=== PATIENT | female | born 1970 | race Caucasian/White ===

== ENCOUNTER 2019-02-22 08:28 | Emergency (ER) | payer MEDICARE, MEDICAID ==
[~2019-02-22] VITALS: Ht 160 cm; Wt 85.0 kg
[~2019-02-22 08:28] MED LIST: AMBIEN 10MG10 MG PO; ASPIRIN 81M81 MG/TA2 PO; CYMBALTA 60MG60 MG PO; JOLESSA 30 MCG-1 TAB PO; LASIX 40MG TABL40 MG PO; LEVEMIR100 U/ML SQ; LEVOXYL0.125 MG PO; NEURONTIN600 MG/TAB PO; NOVOLOG 100U100 U/M1 SQ; TOPROL XL 25MG25 MG PO; VASOTEC 2.2.5 MG/TAB PO; WELLBUTRIN XL150 MG PO
[2019-02-22 08:33] VITALS: TEMP 98.4
[2019-02-22 09:20] LABS: COLLECTION METHOD CLEAN CATCH
[2019-02-22 09:20] LABS: BASO % 0.3 % (0.0-2.0); EOS # 0.1 (0.0-0.7); EOS % 1.4 % (0-4.0); GRAN % 70.6 % (42.2-75.2); HEMOGLOBIN 10.9 g/dl (12.5-16.0); LYMPH # 1.4 (1.2-3.4); LYMPH % 20.4 % (20.0-51.0); MEAN CELL VOLUME 90 fl (80.0-100.0); MEAN CORPUSCULAR HEMOGLOBIN 29 pg (27.0-31.0); MEAN CORPUSCULAR HGB CONC 32 g/dl (33.0-37.0); MEAN PLATELET VOLUME 10.9 fl (7.4-10.4); MONO # 0.5 (0.1-0.6); PLATELET COUNT 444 K/mm3 (130-400); RED BLOOD COUNT 3.81 M/mm3 (4.10-5.30); REDCELL DISTRIBUTION WIDTH-CV 13.1 % (11.5-14.5)
[2019-02-22 09:22] LABS: HEMATOCRIT 34.3 % (37.0-47.0)
[2019-02-22 09:27] LABS: PROTHROMBIN TIME 11.7 SECONDS (9.7-12.8)
[2019-02-22 09:30] LABS: PH 6 (5-8); SQUAMOUS EPITHELIAL None Seen /hpf; URINE APPEARANCE Clear; URINE BACTERIA None Seen /hpf; URINE BILIRUBIN Negative (NEGATIVE); URINE BLOOD 1+ (NEGATIVE); URINE COLOR Straw; URINE GLUCOSE 3+ (NEGATIVE); URINE KETONE Negative (NEGATIVE); URINE LEUKOCYTE ESTERASE Negative (NEGATIVE); URINE NITRATE Negative (NEGATIVE); URINE PROTEIN(semi-quant) Negative (NEGATIVE); URINE RBC 0-2 /hpf; URINE UROBILINOGEN Negative (NEGATIVE)
[2019-02-22 09:33] LABS: ALANINE AMINOTRANSFERASE < 6 U/L (9-52); ALBUMIN 3.9 gm/dL (3.5-5.0); ALKALINE PHOSPHATASE 167 U/L (50-136); ANION GAP 11 mmol/L (7-16); AST,SGOT 14 U/L (15-37); BILIRUBIN,TOTAL 0.5 mg/dL (0.0-1.0); BLOOD UREA NITROGEN 32 mg/dL (7-17); CALCIUM 9.3 mg/dL (8.4-10.2); CARBON DIOXIDE 21 mmol/L (22-30); CHLORIDE 93 mmol/L (98-107); CREATININE, serum 1.69 (0.52-1.25); POTASSIUM 4.9 mmol/L (3.4-5.0); SODIUM 126 mmol/L (137-145); TOTAL PROTEIN 7.5 gm/dL (6.4-8.2)
[2019-02-22 09:34] LABS: ACETONE,SERUM NEGATIVE
[2019-02-22 09:46] LABS: GLUCOSE 691 mg/dL (74-106)
[2019-02-22] MEDS ORDERED: LEVEMIR FLEX100 U/ML SQ (09:55)
[2019-02-22] MEDS ORDERED: LOVENOX 8080 MG/0.8 SQ (17:40)
[2019-02-22 18:01] VITALS: BP 109/74; PULSE 104
== END 2019-02-22 18:07 | disposition home or self-care (01) ==
LOC: COL.ER 08:28
PROVIDERS: Physician Assistant
DX: E11.65 Type 2 diabetes mellitus with hyperglycemia (principal); E78.5 Hyperlipidemia, unspecified; F32.9 Major depressive disorder, single episode, unspecified; E11.22 Type 2 diabetes mellitus with diabetic chronic kidney disease; I12.9 Hypertensive chronic kidney disease with stage 1 through stage 4 chronic kidney disease, or unspecified chronic kidney disease; N18.9 Chronic kidney disease, unspecified; Z95.9 Presence of cardiac and vascular implant and graft, unspecified; Z79.4 Long term (current) use of insulin; Z79.01 Long term (current) use of anticoagulants; Z79.82 Long term (current) use of aspirin
CPT/HCPCS: J1650; J1815; J7030